=== PATIENT | male | born 1950 | race Two or more races ===

== ENCOUNTER → 2017-10-07 | Outpatient (CLI) | payer BC, MEDICARE ==
[~2017-10-07] VITALS: Ht 175.3 cm; Wt 85.3 kg
[~2017-10-07] MED LIST: ALPR0.5T; AMLO5TAB2; LISI-646; NOR10T; OXY20CRT PO
== END | disposition home or self-care (01) ==
LOC: Rad HDHVI 08:28
PROVIDERS: ATTEND Internal Medicine Cardiovascular Disease
DX: I10 Essential (primary) hypertension (principal); R00.2 Palpitations; R07.89 Other chest pain
CPT/HCPCS: 78452; 93017; 93306; 96374; A9500

== ENCOUNTER → 2019-06-07 | Outpatient (CLI) | payer BC ==
[~2019-06-07] VITALS: Ht 175.3 cm; Wt 83.9 kg
[~2019-06-07] MED LIST changes: +AMLO5TAB15; -AMLO5TAB2
== END | disposition home or self-care (01) ==
LOC: Rad HDHVI 07:58
PROVIDERS: ATTEND Internal Medicine Cardiovascular Disease
DX: I10 Essential (primary) hypertension (principal); D75.1 Secondary polycythemia; E29.1 Testicular hypofunction; E78.2 Mixed hyperlipidemia
CPT/HCPCS: 78452; 93017; 93306; 96374; A9500

== ENCOUNTER → 2022-05-05 | Outpatient (CLI) | payer BC ==
[~2022-05-05] VITALS: Ht 175.3 cm; Wt 81.6 kg
[~2022-05-05] MED LIST changes: +AMLO-489; -AMLO5TAB15; -LISI-646; +LISI20TA28
== END | disposition home or self-care (01) ==
LOC: Rad HDHVI 08:02
PROVIDERS: ATTEND Internal Medicine Cardiovascular Disease
DX: I10 Essential (primary) hypertension (principal); Z95.0 Presence of cardiac pacemaker; Z82.49 Family history of ischemic heart disease and other diseases of the circulatory system
CPT/HCPCS: 78452; 93017; 96374; A9500

== ENCOUNTER → 2022-05-06 | Outpatient (CLI) | payer BC | END | disposition home or self-care (01) | LOC: Rad HDHVI 08:03 | PROVIDERS: ATTEND Internal Medicine Cardiovascular Disease | DX: I65.09 Occlusion and stenosis of unspecified vertebral artery (principal); R07.89 Other chest pain; I10 Essential (primary) hypertension | CPT/HCPCS: 93880 ==

== ENCOUNTER → 2022-05-12 | Outpatient (CLI) | payer BC | END | disposition home or self-care (01) | LOC: Rad HDHVI 10:57 | PROVIDERS: ATTEND Internal Medicine Cardiovascular Disease | DX: I08.0 Rheumatic disorders of both mitral and aortic valves (principal); R00.2 Palpitations; R07.89 Other chest pain | CPT/HCPCS: 93306 ==

== ENCOUNTER → 2023-01-04 | Outpatient (CLI) | payer BC | END | disposition home or self-care (01) | LOC: Rad HDHVI 08:35 | PROVIDERS: ATTEND Internal Medicine Cardiovascular Disease | DX: R60.9 Edema, unspecified (principal) | CPT/HCPCS: 93970 ==

== ENCOUNTER → 2024-07-24 | Outpatient (CLI) | payer BC ==
[~2024-07-24] MED LIST changes: -AMLO-489; +AMLO1TAB22; -LISI20TA28; +LISI20TA56
== END | disposition home or self-care (01) ==
LOC: Rad HDHVI 08:55
PROVIDERS: ATTEND Internal Medicine Cardiovascular Disease
DX: I10 Essential (primary) hypertension (principal); R06.02 Shortness of breath
CPT/HCPCS: 93306

== ENCOUNTER → 2024-08-09 | Outpatient (CLI) | payer BC ==
[~2024-08-09] VITALS: Ht 175.3 cm; Wt 81.6 kg
== END | disposition home or self-care (01) ==
LOC: Rad HDHVI 07:55
PROVIDERS: ATTEND Internal Medicine Cardiovascular Disease
DX: I10 Essential (primary) hypertension (principal); E78.00 Pure hypercholesterolemia, unspecified; I49.5 Sick sinus syndrome; I48.0 Paroxysmal atrial fibrillation; R06.02 Shortness of breath; Z95.0 Presence of cardiac pacemaker; Z82.49 Family history of ischemic heart disease and other diseases of the circulatory system
CPT/HCPCS: 78452; 93017; 96374; A9500